=== PATIENT | male | born 1990 | race Caucasian/White ===

== ENCOUNTER 2016-09-27 10:43 | Emergency (ER) | payer MEDICAID ==
[~2016-09-27] VITALS: Ht 180.3 cm; Wt 80.0 kg
[2016-09-27 11:03] VITALS: BP 142/101
[2016-09-27 12:01] LABS: HEMOGLOBIN 16.8 g/dL (13.7-18.0)
[2016-09-27 12:09] LABS: BLOOD UREA NITROGEN 10 mg/dL (7-18)
[2016-09-27 12:15] LABS: ACETAMINOPHEN < 2 mcg/mL (10-30)
[2016-09-27] MEDS ORDERED: CLOZ25TA6 PO (12:52)
[2016-09-27 13:15] LABS: DAU SCREEN DISCLAIMER
== END 2016-09-27 14:26 | disposition home or self-care (01) ==
LOC: ED 11:46
DX: F22 Delusional disorders (principal); Z79.899 Other long term (current) drug therapy; Z91.14 Patient's other noncompliance with medication regimen
CPT/HCPCS: 36415; 80048; 80307; 80329; 82040; 85025; 99284; G0480

== ENCOUNTER 2019-02-10 05:03 | Emergency (ER) | payer MEDICARE, MEDICAID ==
[~2019-02-10] VITALS: Ht 180.3 cm; Wt 108.5 kg
[~2019-02-10 05:03] MED LIST: CLOZ25TA6 PO
--- NOTE | 2019-02-10 05:25 | NUR ---
Pt brought to room 41, c/o sudden onset righ LQ abd pain x 1-2 hours, nausea w/ emesis x 3. Vitals stable, denies fever or diarrhea. Pt is unable to urinate at this time, denies hematuria or painful urination. Father at bedside.
[2019-02-10 05:32] LABS: BASOPHILS # (AUTO) 0.04 x10^3/uL (0-0.1); BASOPHILS % (AUTO) 0 % (0-1); EOSINOPHILS # (AUTO) 0.04 x10^3/uL (0-0.4); EOSINOPHILS % (AUTO) 0 % (1-7); LYMPHOCYTES # (AUTO) 2.13 x10^3/uL (1-3.4); LYMPHOCYTES % (AUTO) 21 % (22-44); MD NO; MEAN CORPUSCULAR HEMOGLOBIN 29.6 pg (27.5-34.5); MEAN CORPUSCULAR HGB CONC 33.8 g/dL (33.2-36.2); MEAN CORPUSCULAR VOLUME 87.6 fL (81-97); MEAN PLATELET VOLUME 7.3 fL (7.4-10.4); MONOCYTES % (AUTO) 6 % (2-9); NEUTROPHILS # (AUTO) 7.45 x10^3/uL (1.8-6.8); NEUTROPHILS % (AUTO) 73 % (42-75); PLATELET COUNT 311 x10^3/uL (130-400); RED BLOOD COUNT 5.34 x10^6/uL (4.38-5.82); RED CELL DISTRIBUTION WIDTH 13.6 % (9.4-14.8)
[2019-02-10 05:48] LABS: ALANINE AMINOTRANSFERASE 60 U/L (12-78); ALBUMIN 4.3 g/dL (3.4-5.0); ANION GAP 9 mmol/L (5-15); CALCIUM 9.2 mg/dL (8.5-10.1); CHLORIDE 106 mmol/L (98-107); CREATININE 1.47 mg/dL (0.7-1.3)
[2019-02-10 05:50] LABS: ALKALINE PHOSPHATASE 74 U/L (45-117); BILIRUBIN,TOTAL 1.7 mg/dL (0.2-1.0); TOTAL PROTEIN 8.2 g/dL (6.4-8.2)
[2019-02-10] MEDS ORDERED: ONDANSETRON 2MG/ML, 2ML ONE (05:55)
[2019-02-10] MEDS ORDERED: HYDROmorphone 1 MG/ML, 1ML VIAL ONE ×2 (05:55→07:42)
[2019-02-10] MEDS ORDERED: SODIUM CHLORIDE 0.9% 1,000ML IV ONE (06:00)
[2019-02-10] MEDS ORDERED: SODIUM CHLORIDE FLUSH 10ML SYR IVF ONE (06:00)
[2019-02-10] MEDS ORDERED: ONDANSETRON 2MG/ML, 2ML IVPush ONE (06:00)
[2019-02-10] MEDS ORDERED: HYDROmorphone 2 MG/ML, 1ML IVPush PRN (06:00)
--- NOTE | 2019-02-10 06:03 | NUR ---
PIV placed, IV medication given for pain and nausea. vitals stable.
[2019-02-10 06:23] LABS: CULTURE INDICATED? YES; MICROSCOPIC INDICATED
--- NOTE | 2019-02-10 07:00 | NUR ---
ASSUMED CARE. PT STATES SOME IMPROVEMENT IN PAIN AND NAUSEA SINCE MEDICATED. FAMILY AT BEDSIDE.
--- NOTE | 2019-02-10 07:43 | NUR ---
IV FLUIDS INFUSING AND MEDICATED FOR CONTINUED PAIN
[2019-02-10 09:00] VITALS: BP 144/98
--- NOTE | 2019-02-10 09:01 | NUR ---
pain improved, bolus infused. discharge given with questions answered. ambulated to discharge window, steady gait.
== END 2019-02-10 09:04 | disposition home or self-care (01) ==
LOC: ED 05:43
DX: N20.2 Calculus of kidney with calculus of ureter (principal); R31.9 Hematuria, unspecified; F17.200 Nicotine dependence, unspecified, uncomplicated; F29 Unspecified psychosis not due to a substance or known physiological condition
CPT/HCPCS: 36415; 74176; 80053; 81001; 85025; 87086; 96361; 96374; 96375; 99284; J1170; J2405; J7030

== ENCOUNTER → 2019-06-30 | Outpatient (CLI) | payer MEDICARE, MEDICAID | END | disposition home or self-care (01) | LOC: RAD 12:16 | PROVIDERS: ATTEND Physician Assistant | DX: N20.0 Calculus of kidney (principal); Z87.442 Personal history of urinary calculi | CPT/HCPCS: 74176 ==